=== PATIENT | male | born 1965 | race Hispanic/Latino ===

== ENCOUNTER 2023-12-29 08:18 | Emergency (ER) | payer OTHER, BC ==
[~2023-12-29] VITALS: Ht 190.5 cm; Wt 113.4 kg
[2023-12-29 08:19] VITALS: TEMP 98.4
[2023-12-29] MEDS: BACLOFEN 10 MG TABLET PO STA (08:53)
[2023-12-29 09:24] LABS: AMPHET/METH SCREEN,URINE NEGATIVE (NEGATIVE); BARBITURATE SCREEN, URINE NEGATIVE (NEGATIVE); BENZODIAZEPINES SCREEN,URINE NEGATIVE (NEGATIVE); CANNABINOID SCREEN,URINE NEGATIVE (NEGATIVE); COCAINE SCREEN,URINE NEGATIVE (NEGATIVE); OPIATE SCREEN,URINE NEGATIVE (NEGATIVE); PHENCYCLIDINE SCREEN,URINE NEGATIVE (NEGATIVE)
[2023-12-29 10:26] VITALS: BP 128/89; PULSE 74; RESP 17; O2SAT 99
== END 2023-12-29 10:27 | disposition home or self-care (01) ==
LOC: EDH 08:18
DX: M62.830 Muscle spasm of back (principal); E11.9 Type 2 diabetes mellitus without complications; I10 Essential (primary) hypertension; M19.90 Unspecified osteoarthritis, unspecified site; Z98.890 Other specified postprocedural states; V89.2XXA Person injured in unspecified motor-vehicle accident, traffic, initial encounter; Y93.89 Activity, other specified; Y92.488 Other paved roadways as the place of occurrence of the external cause; Y99.8 Other external cause status
CPT/HCPCS: 71045; 80305; 93005

== ENCOUNTER → 2024-05-16 | Outpatient (CLI) | payer OTHER ==
--- NOTE | 2024-05-16 14:32 | HMCIMG ---
CT CORONARY CALCIFICATION SCORING: Anatomic images were reviewed. The calcium score is being generated and reported separately. This report is for the visualized anatomy only. Visualized portions of the lungs are clear. Hilar and mediastinal structures appear normal. Osseous structures are unremarkable. Impression: 1. Negative noncardiac anatomic findings. 2. The calcium score is 244.8 consistent with a moderate degree of calcified plaque. This is 80th percentile for a patient this age. CT was performed with one or more following dose reduction techniques: automated exposure control, adjustment of the mA and kv according to patient's size, or use of a iterative reconstruction technique.
== END | disposition home or self-care (01) ==
LOC: RAH 13:00
PROVIDERS: ATTEND Internal Medicine Cardiovascular Disease
DX: Z13.6 Encounter for screening for cardiovascular disorders (principal)
CPT/HCPCS: 75571

== ENCOUNTER 2024-07-12 14:40 | Emergency (ER) | payer BC ==
[~2024-07-12] VITALS: Ht 190.5 cm; Wt 113.4 kg
--- NOTE | 2024-07-12 14:54 | EKG ---
[facility] Test Date: 2024-07-12 Test Time: 14:53:12 Pat Name: STEPHEN AVENDANO Department: [facility] Room: Gender: M Beamster: [id number] : 1965 Requested By: KAY ALANIS Order Number: [id number] Reading MD: Bo Rg Measurements Intervals [place] Rate: 76 P: 35 NV: 154 QRS: -21 QRSD: 88 T: 56 QT: 377 QTc: 424 Interpretive Statements Sinus rhythm Probable left atrial enlargement Compared to ECG 12/29/2023 09:10:01 No significant changes Electronically Signed On 07-13-2024 07:26:43 CDT by Bo Rg Please click the below link to view image of tracing.
[2024-07-12] MEDS ORDERED: nifeDIPine 10 MG CAP PO ONE (15:30)
[2024-07-12 15:59] LABS: BASOPHILS # (AUTO) 0.05 K/uL (0.00-0.20); BASOPHILS % (AUTO) 0.4 % (0.0-5.0); EOSINOPHILS # (AUTO) 0.04 K/uL (0.00-0.70); EOSINOPHILS % (AUTO) 0.3 % (0.0-8.0); HEMATOCRIT 42.7 % (42-54); IMMATURE GRANULOCYTE ABSOLUTE 0.03 K/uL (0-1); LYMPHOCYTES # (AUTO) 1.9 K/uL (1.0-4.8); LYMPHOCYTES % (AUTO) 16.4 % (21.0-51.0); MEAN CORPUSCULAR HEMOGLOBIN 31.1 pg (27.0-33.0); MEAN CORPUSCULAR VOLUME 91.6 fL (79-99); MONOCYTES # (AUTO) 0.8 K/uL (0.1-1.0); MONOCYTES % (AUTO) 6.9 % (3.0-13.0); NEUTROPHILS % (AUTO) 75.7 % (40.0-77.0); PLATELET COUNT (AUTO) 223 K/uL (130-400); RED BLOOD CELL COUNT(AUTO) 4.66 MIL/uL (4.50-6.20); RED CELL DISTRIBUTION WIDTH 12.8 % (11.0-15.5); WHITE BLOOD COUNT (AUTO) 11.8 K/uL (4.8-10.8)
[2024-07-12 16:07] LABS: CREATININE 1.2 mg/dL (0.5-1.3); POTASSIUM 3.8 mmol/L (3.5-5.1)
--- NOTE | 2024-07-12 16:17 | HMCIMG ---
CT HEAD/BRAIN W/O CONTRAST HISTORY: Severe headaches COMPARISON: None TECHNIQUE: Multiple sequential axial images of the head were obtained from the base of the skull through vertex. Patient was not given contrast through intravenous route. FINDINGS: The ventricles and extraventricular CSF spaces are nondilated for patient's age. There is no midline shift, mass effect or herniation. No acute intracranial bleed is seen. There is left maxillary sinus opacification. IMPRESSION: 1. No acute intracranial bleed is seen. CT was performed with one or more following dose reduction techniques: automated exposure control, adjustment of the mA and kv according to patient's size, or use of a iterative reconstruction technique.
[2024-07-12] MEDS: hydrALAZine HCL 10 MG TABLET PO ONE ×2 (18:59→20:31)
[2024-07-12] MEDS: metoCLOPRAmide 10 MG/2 ML VIAL IVP ONE (18:59)
[2024-07-12] MEDS: 0.9%NACL 1000ML 1,000 ML IV ONE (18:59)
[2024-07-12] MEDS: nifeDIPine 10 MG CAP PO ONE (21:39)
[2024-07-12 22:23] VITALS: BP 138/81; PULSE 74; RESP 18; TEMP 98.1; O2SAT 99
--- NOTE | 2024-07-12 22:26 | ERN ---
General Chief Complaint: Chest Pain Stated Complaint: CHEST PAIN,HEADACHE,NUMBNESS IN LEFT ARM Time Seen by MD: 14:41 Time Seen by Midlevel: 14:41 Source: patient History of Present Illness Initial Comments 59-year-old male who presents to the emergency department due to a worsening headache onset yesterday. Patient reports chest pain, nausea, vision change, left arm numbness but denies any fever, difficulty breathing or further associated symptoms. Patient reports medical history of DM, arthritis, reports he does not take any medication for high blood pressure. Allergies: Coded Allergies: No Known Drug Allergies (Unverified Allergy, Unknown, 12/29/23) Past Medical History Past Medical History: Arthritis, Diabetes-Type II, Hypertension Past Surgical History: None Surgical History Other: lumbar disc herniation repair ROS Dictation Constitutional: Negative for fever,chills, and weight loss Eyes: Negative for injury, pain,redness, and discharge ENT: Positive for vision change Negative for injury,pain or swelling Cardiovascular: Positive for chest pain Negative for chest pain, palpitations, and edema Respiratory: Negative for shortness of breath, cough, and wheezing, Abdomen/GI: Negative for abdominal pain, nausea, vomiting, diarrhea, and constipation Back: Negative for injury and pain : Negative for painful urination, bleeding or discharge MS/Extremity: Negative for injury and deformity Skin: Negative for rash, and discoloration Neuro: Positive for headache Negative for weakness, numbness, tingling, and seizure Psych: Negative for suicide ideation, homicidal ideation, and hallucinations Physical Exam Physical Exam Dictation General: awake, alert, no acute distress Head/Face: Normocephalic, atraumatic Eyes: PERRL, EOMI, normal conjunctiva ENT: oral cavity clear, oral mucosa moist Neck: Supple, normal range of motion Cardiovascular: RRR, normal S1/S2 Respiratory: CTAB, no respiratory distress, no rales or wheezes Abdomen: Soft, non-tender, non-distended, no guarding or rebound. Skin: Warm, dry, normal turgor, no rash MS/Extremity: Pulses equal, no cyanosis, neurovascular intact, FROM Neuro: COAx4, GCS 15, strength 5/5, CN 2-12 intact, normal cerebellar exam, normal gait Psych: Normal behavior, mood, and affect normal Results Laboratory and Microbiology Lab and Micro Result Laboratory Tests Test 07/12/24 15:53 White Blood Count 11.8 K/uL (4.8-10.8) H Red Blood Count 4.66 MIL/uL (4.50-6.20) Hemoglobin 14.5 g/dL (14.0-18.0) Hematocrit 42.7 % (42-54) Mean Corpuscular Volume 91.6 fL (79-99) Mean Corpuscular Hemoglobin 31.1 pg (27.0-33.0) Mean Corpuscular Hemoglobin Concent 34.0 g/dL (32.0-36.0) Red Cell Distribution Width 12.8 % (11.0-15.5) Platelet Count 223 K/uL (130-400) Mean Platelet Volume 11.3 fL (7.5-10.5) H Immature Granulocyte % (Auto) 0.3 % (0-1) Neutrophils (%) (Auto) 75.7 % (40.0-77.0) Lymphocytes (%) (Auto) 16.4 % (21.0-51.0) L Monocytes (%) (Auto) 6.9 % (3.0-13.0) Eosinophils (%) (Auto) 0.3 % (0.0-8.0) Basophils (%) (Auto) 0.4 % (0.0-5.0) Neutrophils # (Auto) 9.0 K/uL (1.8-7.7) H Lymphocytes # (Auto) 1.9 K/uL (1.0-4.8) Monocytes # (Auto) 0.8 K/uL (0.1-1.0) Eosinophils # (Auto) 0.04 K/uL (0.00-0.70) Basophils # (Auto) 0.05 K/uL (0.00-0.20) Absolute Immature Granulocyte (auto 0.03 K/uL (0-1) Nucleated Red Blood Cells 0.0 % (0.0-0.19) Sodium Level 135 mmol/L (136-145) L Potassium Level 3.8 mmol/L (3.5-5.1) Chloride Level 96 mmol/L (101-111) L Carbon Dioxide Level 31 mmol/L (21-32) Blood Urea Nitrogen 14 mg/dL (7-18) Creatinine 1.2 mg/dL (0.5-1.3) Glomerular Filtration Rate Calc 70 mL/min (>90) Random Glucose 148 mg/dL (70-105) H Total Calcium 9.1 mg/dL (8.5-10.1) Troponin I High Sensitivity 29 ng/L (4-75) Labs Reviewed?: Yes EKG/XRAY/US/CT/MRI CT Scan Comment REASON: Headache ORDERING PHYSICIAN: KAY ALANIS PROCEDURE: HEAD WO - CT HEAD/BRAIN W/O CONTRAST CT HEAD/BRAIN W/O CONTRAST HISTORY: Severe headaches COMPARISON: None TECHNIQUE: Multiple sequential axial images of the head were obtained from the base of the skull through vertex. Patient was not given contrast through intravenous route. FINDINGS: The ventricles and extraventricular CSF spaces are nondilated for patient's age. There is no midline shift, mass effect or herniation. No acute intracranial bleed is seen. There is left maxillary sinus opacification. IMPRESSION: 1. No acute intracranial bleed is seen. CT was performed with one or more following dose reduction techniques: automated exposure control, adjustment of the mA and kv according to patient's size, or use of a iterative reconstruction technique. DICTATED BY: JUVE RUBY MD DATE: 07/12/241613 [facility] MDM: Differential diagnosis: Elevated blood pressure, hypertensive urgency, hypertensive emergency, chest pain, severe headache Rationale: 59-year-old male who presents to the emergency department due to a worsening headache onset yesterday. Patient reports chest pain, nausea, vision change, left arm numbness but denies any fever, difficulty breathing or further associated symptoms. Patient reports medical history of DM, reports he does not take any medication for high blood pressure. Per physical examination patient is in no acute distress, neurologically intact. Labs obtained are nonspecific. Head CT indicates no acute intracranial abnormalities. Patient received IV fluids, Reglan, and 2 doses of hydralazine in the ED. Patient's symptoms resolved on re-examination however blood pressure continues to be high, systolically 177. Patient was educated on findings, diagnosis and decision for admission. Case discussed with admitting physician Dr. Schaeffer who recommended patient to be discharged and follow up outpatient in clinic tomorrow. During conversation with Dr. Schaeffer and patient it was brought up that patient is supposed to be taking lisinopril but was discontinued by managing diabetes in [place]. Procardia administered, and on recheck blood pressure systolically 138/81. Return to the emergency department if any worsening symptoms. Patient verbalized understanding. Patient stable for discharge. There are no social concerns with this patient. I independently interpreted the test that were performed, results were reviewed by me and considered findings on radiology if ordered. Medical management and examination interpretation discussions were had by me with other qualified healthcare professionals as indicated for the patient's care. ED Course Orders Procedure Category Date Status Time Cbc With Differential LAB 07/12/24 Complete 14:47 Basic Metabolic Panel LAB 07/12/24 Complete 14:47 Troponin I High LAB 07/12/24 Complete Sensitivity 14:47 12 Lead Ekg Tracing- EKG 07/12/24 Resulted Technical 14:47 Ct Head/Brain W/O CT 07/12/24 Resulted Contrast 15:18 Nifedipine PHA 07/12/24 Complete (Nifedipine) 15:30 Hydralazine 10mg Tab PHA 07/12/24 Complete (Apresoline 10mg Ta 17:00 0.9%Nacl 1000ml (Ns PHA 07/12/24 Complete 1000ml) 17:30 Metoclopramide 10 PHA 07/12/24 Complete Mg/2 Ml Vial (Reglan 1 17:30 Hydralazine 10mg Tab PHA 07/12/24 Complete (Apresoline 10mg Ta 20:30 Nifedipine PHA 07/12/24 Complete (Nifedipine) 22:00 Current Medications Medications (Trade) Dose Ordered Sig/Abhinav Route PRN Reason Start Time Stop Time Status Last Admin Dose Admin Hydralazine HCl (APRESOLine 10MG TAB) 10 mg ONCE ONCE PO 07/12/24 17:00 07/12/24 17:01 DC 07/12/24 18:59 Hydralazine HCl (APRESOLine 10MG TAB) 10 mg ONCE ONCE PO 07/12/24 20:30 07/12/24 20:31 DC 07/12/24 20:31 Metoclopramide HCl (regLAN 10MG IV) 10 mg ONCE ONCE IVP 07/12/24 17:30 07/12/24 17:31 DC 07/12/24 18:59 Nifedipine (nifeDIPine) 10 mg ONCE ONCE PO 07/12/24 15:30 07/12/24 15:48 DC Nifedipine (nifeDIPine) 10 mg ONCE ONCE PO 07/12/24 22:00 07/12/24 22:01 DC 07/12/24 21:39 Sodium Chloride 1,000 ml @ 0 mls/hr ONCE ONCE IV 07/12/24 17:30 07/12/24 17:31 DC 07/12/24 18:59 Vital Signs Date Time Temp Pulse Resp B/P (MAP) Pulse Ox O2 Delivery O2 Flow Rate FiO2 07/12/24 22:23 98.1 74 18 138/81 99 Room Air* 0 07/12/24 21:30 98.1 77 18 180/97 98 Room Air* 0 07/12/24 19:50 98.1 77 18 174/94 98 Room Air* 0 21 07/12/24 19:15 77 18 172/75 98 Room Air* 0 07/12/24 15:09 98.1 72 20 171/105 98 Room Air DX & DISP Disposition: Discharge Departure Impression: Primary Impression: Elevated blood pressure reading Additional Impression: Chest pain Condition: Stable Additional Instructions: Discharge home. Rest. Follow up with primary care Dr. in 24 hours. Return to the ER for any acute changes or worsening symptoms. If any medications were prescribed take as directed. Okay to continue home medications unless otherwise discussed during your visit in the emergency room today. Patient was also advised to follow-up with primary care physician in 1 to 2 days for continued monitoring. Referrals: BINTA SCHAEFFER MD (PCP) I performed the substantive portion of the visit. I have reviewed and personall y made and approve the management plan that is documented in the notes by myself or the BALJEET. I acknowledge full responsibility for the patient's management plan. KAY ALANIS Jul 12, 2024 22:26
== END 2024-07-12 22:39 | disposition home or self-care (01) ==
LOC: EDH 14:40
DX: I10 Essential (primary) hypertension (principal); R07.89 Other chest pain; E11.9 Type 2 diabetes mellitus without complications; M19.90 Unspecified osteoarthritis, unspecified site
CPT/HCPCS: 99284; 96374; 70450; 96361; 84484; 80048; 85025; 36415; 93005; J7030; J2765